=== PATIENT | male | born 1975 | race Caucasian/White ===

== ENCOUNTER 2016-07-18 09:50 | Emergency (ER) | payer MEDICAID ==
[~2016-07-18] VITALS: Ht 182.9 cm; Wt 81.0 kg
[2016-07-18 11:23] VITALS: BP 132/92
== END 2016-07-18 11:53 | disposition home or self-care (01) ==
LOC: EMS 09:53
DX: Z48.02 Encounter for removal of sutures (principal); S42.402G Unspecified fracture of lower end of left humerus, subsequent encounter for fracture with delayed healing; Z88.5 Allergy status to narcotic agent; X58.XXXD Exposure to other specified factors, subsequent encounter
CPT/HCPCS: 99281